=== PATIENT | male | born 1960 | race Caucasian/White ===

== ENCOUNTER → 2021-01-06 | Outpatient (CLI) | payer BC ==
[~2021-01-06] MED LIST: ATEN100 PO; CLON.1 PO; DOXA2 PO; FURO40 PO; Flomax0.4 MG PO; GABA300 PO; LISI20 PO; Micro-K10 MEQ; NICO21TP TOP; NIFE30ER PO; Percocet 5-3251 EACH PO; SPIR25 PO; TRAM50 PO; Vitamin D2000 UNIT PO; [UNRECOGNIZED DRUG - CODE] PO
== END | disposition home or self-care (01) ==
LOC: LAB EV 12:26 → LAB SHORT 12:26
DX: H60.91 Unspecified otitis externa, right ear (principal)
CPT/HCPCS: 87070; 87186; 87205

== ENCOUNTER 2021-08-28 05:54 | Inpatient (IN) | payer BC ==
[~2021-08-28] VITALS: Ht 165.1 cm; Wt 69.7 kg
[2021-08-28 06:41] LABS: Albumin, Blood 3.2 g/dL (3.4-5.0); Albumin/Globulin Ratio 0.7 (0.8-1.8); Bilirubin, Total 0.6 mg/dL (0.1-1.0); Bun/Creatinine Ratio 8.3 (12.0-20.0); Calcium, Blood 8.3 mg/dL (8.5-10.1); Creatinine, Blood 1.33 mg/dL (0.60-1.20); Globulin, Blood 4.5 g/dL (2.2-4.0); Potassium, Blood 3.5 mmol/L (3.5-5.5); Total Protein, Blood 7.7 g/dL (6.4-8.2); Troponin I 0.024 ng/mL (0.000-0.040)
[2021-08-28 07:01] LABS: Hematocrit 40.1 % (37.0-53.0); Hemoglobin 13.9 g/dL (13.5-17.5); Mean Corpuscular HGB 35.2 pg (26.0-34.0); Mean Corpuscular HGB Conc 34.7 g/dL (31.5-36.5); Mean Corpuscular Volume 102 fL (80-100); Mean Platelet Volume 8.4 fL (9.1-12.4); Platelet Count 236 K/mm3 (150-400); RDW Coefficient Variation 13.2 % (11.7-14.2); RDW Standard Deviation 50.3 fL (35.1-46.3); Red Blood Cell Count 3.95 M/mm3 (4.30-5.90); White Blood Cell Count 9.26 K/mm3 (4.00-11.30)
[2021-08-28 07:34] LABS: BAND PERCENT MAN 1 % (0-8); BASOPHILS ABSOLUTE MAN 0.09 K/mm3 (0.00-0.23); BASOPHILS PERCENT MAN 1 % (0-2); EOSINOPHILS PERCENT MAN 0 % (0-6); LYMPHOCYTES ABSOLUTE MAN 1.01 K/mm3 (0.84-5.20); LYMPHOCYTES PERCENT MAN 11 % (21-46); MONOCYTES ABSOLUTE MAN 0.46 K/mm3 (0.16-1.47); MONOCYTES PERCENT MAN 5 % (4-13); NEUTROPHILS ABSOLUTE MAN 7.68 K/mm3 (1.96-9.15); SEG NEUTROPHILS PERCENT MAN 82 % (41-73); TOTAL CELLS COUNTED 100
[2021-08-28 09:52] LABS: Source, Urine Clean Catch
[2021-08-28 10:05] LABS: Appearance, Urine Clear (Clear); Bilirubin, Urine Neg (Neg); Blood, Urine 3+ (Neg); Color, Urine Yellow (P-Yellow); Glucose Qualitative, Urine Neg (Neg); Ketones, Urine Neg (Neg); Leukocyte Esterase, Urine 3+ (Neg); Nitrite, Urine Pos (Neg); Protein, Urine 3+ (Neg); Urobilinogen, Urine NORM (Normal)
[2021-08-28 10:20] LABS: U Amphetamine Screen Not Detected; U Barbituate Screen Not Detected; U Benzodiazapine Screen Not Detected; U Buprenorphine Screen Not Detected; U Cannabinoids Screen DETECTED; U Cocaine Screen Not Detected; U Methadone Screen Not Detected; U Methamphetamine Screen Not Detected; U Opiates Screen Not Detected; U Oxycodone Screen Not Detected; U Phencyclidine Screen Not Detected; U Propoxyphene Screen Not Detected
[2021-08-28 10:26] LABS: Bacteria Many /hpf; Squamous Epithelial Cells Few /hpf (Few)
[2021-08-28 10:28] LABS: Amorphous Light (0-Heavy)
--- NOTE | 2021-08-28 18:18 | NUR ---
END OF SHIFT SUMMARY: PATIENT ARRIVED FROM ED LETHARGIC AND SLEEPY, AND REMAINED THIS WITH SHORT 5-10 MINUTES OF ALERT AND ORIENTED, TREMORS HAVE DECREASED THROUGHOUT THE DAY. DENIES ANY PAIN, NO CP TIGHTNESS. PATIENT TOLERATED VERY TINY SIPS OF WATER WHEN ALERT. PATIENT HAD A SEIZURE UPON EMS ARRIVAL, IS STILL NEEDING CT, DID NOT TOLERATE BECAUSE HE COULD NOT LAY FLAT WHEN IN THE ED. MAIN CONCERN WAS HOW HYPERTENSIVE PATIENT WAS EVEN AFTER DOSES OF IVP METOPROLOL, WHICH WERE GIVEN Q4 HOURS UNTIL THIS PM GAVE 20 MG OF HYDRALAZINE WHICH DECRESED BP'S TO THE 130'S AND 80'S. CHARGE NURSE CALLED PROVIDER FOR THESE ORDERS FROM HOSPITALIST. WILL CONTINUE TO MONITOR AT THIS TIME.
[2021-08-29 04:41] LABS: BASOPHILS ABSOLUTE AUTO 0.03 K/mm3 (0.00-0.23); BASOPHILS PERCENT AUTO 0 % (0-2); EOSINOPHILS ABSOLUTE AUTO 0.03 K/mm3 (0.00-0.68); EOSINOPHILS PERCENT AUTO 0 % (0-6); Hematocrit 34.8 % (37.0-53.0); Hemoglobin 11.9 g/dL (13.5-17.5); IMMATURE GRAN ABSOLUTE AUTO 0.03 K/mm3 (0.00-0.10); IMMATURE GRAN PERCENT AUTO 0 % (0-1); LYMPHOCYTES PERCENT AUTO 21 % (21-46); MONOCYTES ABSOLUTE AUTO 0.71 K/mm3 (0.16-1.47); MONOCYTES PERCENT AUTO 8 % (4-13); Mean Corpuscular HGB 34.9 pg (26.0-34.0); Mean Corpuscular HGB Conc 34.2 g/dL (31.5-36.5); Mean Corpuscular Volume 102 fL (80-100); Mean Platelet Volume 8.7 fL (9.1-12.4); NEUTROPHILS ABSOLUTE AUTO 6.18 K/mm3 (1.96-9.15); NEUTROPHILS PERCENT AUTO 71 % (41-73); Platelet Count 153 K/mm3 (150-400); RDW Coefficient Variation 13.2 % (11.7-14.2); RDW Standard Deviation 49.8 fL (35.1-46.3); Red Blood Cell Count 3.41 M/mm3 (4.30-5.90); White Blood Cell Count 8.78 K/mm3 (4.00-11.30)
[2021-08-29 05:15] LABS: Albumin, Blood 2.4 g/dL (3.4-5.0); Albumin/Globulin Ratio 0.6 (0.8-1.8); Bilirubin, Total 0.7 mg/dL (0.1-1.0); Bun/Creatinine Ratio 12.9 (12.0-20.0); Calcium, Blood 7.7 mg/dL (8.5-10.1); Creatinine, Blood 1.4 mg/dL (0.60-1.20); Globulin, Blood 3.9 g/dL (2.2-4.0); Magnesium, Blood 1.6 mg/dL (1.6-2.4); Potassium, Blood 3.2 mmol/L (3.5-5.5); Total Protein, Blood 6.3 g/dL (6.4-8.2)
--- NOTE | 2021-08-29 05:38 | NUR ---
SHIFT SUMMARY PATIENT IS FOUND TO BE A&OX3, FOLLOWS COMMANDS, WITH TREMORS AND ACTIVE ALCOHOL WITHDRAWAL. FORGETFUL OF LAST DAYS EVENTS BUT EASILY REORIENTED. CIWA SCORES FROM 7-12 ALL SHIFT WITH LIBRIUM GIVEN X1. UP WITH SBA IN ROOM. LITTLE DIZZY AND SHAKEY STILL AND IS CALLING RN APPROPRIATLY BEFORE GETTING UP. WILL HOLD OFF ON HEAD CT UNTIL PATIENT FEELING UP TO IT IN AM. SEIZURE PRECAUTIONS IN PLACE. VSS. ON RA. ST IN THE 90'S-LOW 100'S ON THE MONITOR. COMPLAINS OF STIFF NECK BUT OTHERISE RESTING COMFORTABLY IN BED MAJORITY OF SHIFT. TOLERATING REGULAR DIET WITHOUT ISSUE. VOIDING WELL PER URINAL OR WITH ASSISTANCE TO BATHROOM. NO ACUTE CONCERNS AT THIS TIME. WILL CONTINUE PLAN OF CARE UNTIL REPORT GIVEN TO DAYSHIFT RN.
[2021-08-29 10:08] LABS: Percent Saturation 26.3 % (20.0-50.0)
--- NOTE | 2021-08-29 18:39 | NUR ---
END OF SHIFT SUMMARY: PATIENT WAS AFIB THIS AM, AGITATION AND IVP METOPROLOL ALONG WITH MORNING METOPROLOL AND OTHER MORNING MEDS, FELL BACK AND SUSTAINED SINUS RHYTHM, HIGH 90'S. BP HAS BEEN STABLE, DENIES CHEST PAIN OR TIGHTNESS, HAS INCREASED STRENGTH AND MOVEMENT, ETOH CONVERSATION WITH HOSPITALIST, PATIENT PLANS TO CONTINUE TO DRINK AFTER DISCHARGE, CIWA HAVE BEEN STABLE LIBRIUM AND ATIVAN THIS AM, NONE THROUGHOUT SHIFT AND INCREASED MENTATION HAS BEEN MAINTAINED. USES CALL LIGHT APPROPRIATE, SBA THROUGH THE DAY. MULTIPLE VOIDS AND STOOLS UNMEASURED. ROCEPHINE SHOULD BE D/C'D TOMORROW IF CX NEG. RA SATURATING >94. WILL CONTINUE TO MONITOR.
[2021-08-30 05:03] LABS: BASOPHILS ABSOLUTE AUTO 0.03 K/mm3 (0.00-0.23); BASOPHILS PERCENT AUTO 0 % (0-2); EOSINOPHILS ABSOLUTE AUTO 0.09 K/mm3 (0.00-0.68); EOSINOPHILS PERCENT AUTO 1 % (0-6); Hematocrit 34.3 % (37.0-53.0); IMMATURE GRAN ABSOLUTE AUTO 0.03 K/mm3 (0.00-0.10); IMMATURE GRAN PERCENT AUTO 0 % (0-1); LYMPHOCYTES PERCENT AUTO 25 % (21-46); MONOCYTES ABSOLUTE AUTO 0.49 K/mm3 (0.16-1.47); MONOCYTES PERCENT AUTO 6 % (4-13); Mean Corpuscular HGB 35.6 pg (26.0-34.0); Mean Corpuscular Volume 102 fL (80-100); Mean Platelet Volume 8.9 fL (9.1-12.4); NEUTROPHILS ABSOLUTE AUTO 5.17 K/mm3 (1.96-9.15); NEUTROPHILS PERCENT AUTO 67 % (41-73); Platelet Count 121 K/mm3 (150-400); RDW Coefficient Variation 12.7 % (11.7-14.2); RDW Standard Deviation 47.5 fL (35.1-46.3); Red Blood Cell Count 3.37 M/mm3 (4.30-5.90); White Blood Cell Count 7.71 K/mm3 (4.00-11.30)
[2021-08-30 05:22] LABS: Albumin, Blood 2.4 g/dL (3.4-5.0); Anion Gap 6 mmol/L (6-16); Blood Urea Nitrogen 22 mg/dL (8-24); Bun/Creatinine Ratio 14.9 (12.0-20.0); CO2, Blood 26 mmol/L (21-32); Calcium, Blood 8.1 mg/dL (8.5-10.1); Chloride, Blood 108 mmol/L (98-108); Creatinine, Blood 1.48 mg/dL (0.60-1.20); Glomerular Filtration Rate 48 (60-); Glucose, Blood 86 mg/dL (70-99); Magnesium, Blood 1.8 mg/dL (1.6-2.4); Potassium, Blood 3.2 mmol/L (3.5-5.5); Sodium, Blood 140 mmol/L (136-145)
--- NOTE | 2021-08-30 05:58 | NUR ---
SHIFT SUMMARY PATIENT HAS BEEN A&OX4, PLESANT WITH CARE, WITH SOME FORGETFULLNESS. CIWA Q4H AND TREATED WITH LIBRIUM X1 ACCORDINGLY. IMPULSIVE AT TIMES BUT STEADY SO ALLOWING PATIENT TO BE UP IND IN ROOM TO NOT AGIATE HIM MORE THIS IS SENSITIVE ISSUE TO HIM. ONLY MILD TREMORS AND ANXIETY AT THIS POINT. SEIZURE PRECAUTIONS IN PLACE. VSS. SR/ST ON THE MONITOR ALL SHIFT. ON RA. TOLERATING REGULAR DIET WITHOUT ISSUE. VOIDING WELL PER URINAL AND IN BATHROOM. FEW BM'S OVERNIGHT BUT PATIENT STATES THIS IS NORMAL FOR HIM. WILL CONTINUE PLAN OF CARE UNTIL REPORT GIVEN TO DAYSHIFT RN.
[2021-08-30] MEDS ORDERED: METO25 PO (12:17)
[2021-08-30] MEDS ORDERED: ASPI81CH PO (12:27)
[2021-08-30] MEDS ORDERED: NICODERM CQ1 EA11 TOP (12:28)
[2021-08-30] MEDS ORDERED: OMEP20ER PO (12:28)
[2021-08-30] MEDS ORDERED: AMOCLA875 PO (12:29)
[2021-08-30] MEDS ORDERED: LACT PO (12:29)
--- NOTE | 2021-08-30 14:58 | NUR ---
UPDATE/DISHCARGE PT PROVIDED WITH DISCHARGE ORDERS AFTER IV FLUIDS FINISHED PER PHYSICIAN ORDER. PT'S NEW MEDICATIONS FAXED TO PT'S PREFERRED PHARMACY. PT PROVIDED WITH DISCHARGE INSTRUCTIONS PER PHYSICIAN. IV REMOVED. TELE REMOVED. PT TO BE BROUGHT TO [employer] VEHICLE BY [employer]ATION SALES TECHNICIAN BY WHEELCHAIR WITH ALL BELONINGS. PT HAS D/C PACKET WITH HIM.
== END 2021-08-30 15:12 | disposition home or self-care (01) | DRG 897 ==
LOC: ER 05:54 → PCU 05:55 → ERHOLD 05:55 → PCU 12:32
PROVIDERS: Emergency Medicine; Family Medicine; Nurse Practitioner Acute Care; ADMIT Family Medicine
DX: F10.139 Alcohol abuse with withdrawal, unspecified (principal); E87.2 Acidosis; R56.9 Unspecified convulsions; I16.0 Hypertensive urgency; I12.9 Hypertensive chronic kidney disease with stage 1 through stage 4 chronic kidney disease, or unspecified chronic kidney disease; N18.30 Chronic kidney disease, stage 3 unspecified; F17.210 Nicotine dependence, cigarettes, uncomplicated; I48.91 Unspecified atrial fibrillation; G47.33 Obstructive sleep apnea (adult) (pediatric); B19.20 Unspecified viral hepatitis C without hepatic coma; N40.0 Benign prostatic hyperplasia without lower urinary tract symptoms; G43.909 Migraine, unspecified, not intractable, without status migrainosus; K70.9 Alcoholic liver disease, unspecified; E87.6 Hypokalemia; H70.91 Unspecified mastoiditis, right ear; E83.42 Hypomagnesemia; D69.59 Other secondary thrombocytopenia; F10.129 Alcohol abuse with intoxication, unspecified; D63.8 Anemia in other chronic diseases classified elsewhere; E88.09 Other disorders of plasma-protein metabolism, not elsewhere classified; I77.819 Aortic ectasia, unspecified site; M19.90 Unspecified osteoarthritis, unspecified site; F43.10 Post-traumatic stress disorder, unspecified; Y90.1 Blood alcohol level of 20-39 mg/100 ml; Z79.899 Other long term (current) drug therapy; Z79.891 Long term (current) use of opiate analgesic; Z91.14 Patient's other noncompliance with medication regimen; Z91.19 Patient's noncompliance with other medical treatment and regimen
CPT/HCPCS: 36415; 70450; 71045; 80053; 80069; 81001; 82607; 82728; 82746; 83540; 83550; 83605; 83735; 83880; 84443; 84484; 85025; 87086; 93005; 93010; 93306; 94762; 96361; 96365; 96366; 96367; 96368; 96375; 96376; 99285-25; A9270; G0378; G0480; J0360; J0696; J1650; J2060; J2405; J2765; J3411; J3475; J3480; J7030; J7042

== ENCOUNTER 2022-04-03 06:46 | Inpatient (IN) | payer BC ==
[~2022-04-03] VITALS: Ht 162.6 cm; Wt 69.3 kg
[~2022-04-03 06:46] MED LIST changes: +AMOCLA875 PO; +ASPI81CH PO; +LACT PO; +METO25 PO; +NICODERM CQ1 EA11 TOP; +OMEP20ER PO
[2022-04-03] MEDS ORDERED: KERENDIA10 MG PO (07:48)
[2022-04-03] MEDS ORDERED: KLOR-CON 1010 ME8 PO (07:49)
[2022-04-03] MEDS ORDERED: ATEN50 PO (07:49)
[2022-04-03] MEDS ORDERED: FURO40 PO (07:50)
[2022-04-03 07:57] LABS: BASOPHILS ABSOLUTE AUTO 0.03 K/mm3 (0.00-0.23); BASOPHILS PERCENT AUTO 0 % (0-2); EOSINOPHILS PERCENT AUTO 0 % (0-6); Hematocrit 29.1 % (37.0-53.0); Hemoglobin 10.3 g/dL (13.5-17.5); IMMATURE GRAN ABSOLUTE AUTO 0.02 K/mm3 (0.00-0.10); IMMATURE GRAN PERCENT AUTO 0 % (0-1); LYMPHOCYTES ABSOLUTE AUTO 1.04 K/mm3 (0.84-5.20); LYMPHOCYTES PERCENT AUTO 13 % (21-46); MONOCYTES ABSOLUTE AUTO 0.67 K/mm3 (0.16-1.47); MONOCYTES PERCENT AUTO 8 % (4-13); Mean Corpuscular HGB 36.3 pg (26.0-34.0); Mean Corpuscular HGB Conc 35.4 g/dL (31.5-36.5); Mean Corpuscular Volume 103 fL (80-100); Mean Platelet Volume 8.7 fL (9.1-12.4); NEUTROPHILS PERCENT AUTO 78 % (41-73); Platelet Count 224 K/mm3 (150-400); RDW Coefficient Variation 13.7 % (11.7-14.2); RDW Standard Deviation 51.8 fL (35.1-46.3); Red Blood Cell Count 2.84 M/mm3 (4.30-5.90); White Blood Cell Count 7.96 K/mm3 (4.00-11.30)
[2022-04-03 08:12] LABS: Albumin, Blood 3.2 g/dL (3.4-5.0); Albumin/Globulin Ratio 0.9 (0.8-1.8); Bilirubin, Total 0.6 mg/dL (0.1-1.0); Bun/Creatinine Ratio 31.8 (12.0-20.0); Calcium, Blood 8.8 mg/dL (8.5-10.1); Creatinine, Blood 1.57 mg/dL (0.60-1.20); Globulin, Blood 3.5 g/dL (2.2-4.0); Potassium, Blood 4.2 mmol/L (3.5-5.5); Total Protein, Blood 6.7 g/dL (6.4-8.2)
[2022-04-03 09:08] LABS: Influenza A, PCR NEGATIVE (NEGATIVE); Influenza B, PCR NEGATIVE (NEGATIVE); Resp Syncytial Virus, PCR NEGATIVE (NEGATIVE); SARS-Cov-2 (COVID-19) PCR, MMC NEGATIVE (NEGATIVE)
[2022-04-03 15:55] LABS: Hemoglobin 8.9 g/dL (13.5-17.5)
--- NOTE | 2022-04-03 18:00 | NUR ---
Pt arrived from the ED via stretcher. He is alert, oriented, and cooperative. Calm. Denies any anxiety, pain, headache, hallucinations, nor nausea. He has some mild tremors which he states that he always has, even when he is drinking alcohol. STates that his last drink was March the . States that he has been trying to cut back on his drinking, and he recognizes that he is an alcoholic, but that it is "very hard". STates he did have treatment 25 years ago for chemical dependency, but none since then. At this time his CIWA score is 1. Call to Dr. Magdaleno to request oral medications PRN alcohol withdrawls. Sandostatin, IV NS and IV protonix are all infusing as ordered. He states that just before coming to the unit he had a bowel movement which looked totally normal in color. Noted blood pressure is elevated. Normal sinus rhythm noted on telemetry.
--- NOTE | 2022-04-03 18:32 | NUR ---
Pt up to bedside commode, very small smear of stool which was brown and red. Given librium po for withdrawl symptoms.
--- NOTE | 2022-04-03 20:43 | NUR ---
ASSUMED CARE OF PATIENT AT APPROXIMATELY 1915 FROM URBAN Mckeon RN. PATIENT ALERT AND ORIENTED X4; SBA OUT OF BED DUE TO LINES AND CORDS. PATIENT WAS SLEEPING DURING BEDSIDE REPORTS AND REPORTS HE IS TRYING TO SLEEP TO FORGET ABOUT NOT BEING ABLE TO EAT. PATIENT NPO. PATIENT DENIES NUMBNESS, TINGLING, DIZZINESS, AND NAUSEA. OCTREOTIDE, NS, AND PROTONIX INFUSING PER ORDER. SR ON TELE; OXYGEN SATURATION ABOVE 90% ON ROOM AIR. PATIENT AMBULATED TO BATHROOM AND HAS A VERY SMALL SMEAR BROWN TARRY BM; NO RED BLOOD NOTED. BP ELEVEATED BUT SCHEDULED PM MEDICATION GIVEN PER ORDER; WILL REASSESS.
[2022-04-03 21:15] LABS: Hematocrit 22.3 % (37.0-53.0); Hemoglobin 7.9 g/dL (13.5-17.5)
[2022-04-04 03:23] LABS: Hematocrit 22.2 % (37.0-53.0); Hemoglobin 7.5 g/dL (13.5-17.5)
[2022-04-04 03:39] LABS: International Normalized Ratio 1.09; Prothrombin Time Results 11.4 Sec (9.7-11.5)
[2022-04-04 03:43] LABS: Albumin, Blood 2.7 g/dL (3.4-5.0); Albumin/Globulin Ratio 0.9 (0.8-1.8); Bilirubin, Total 0.6 mg/dL (0.1-1.0); Bun/Creatinine Ratio 23.4 (12.0-20.0); Creatinine, Blood 1.75 mg/dL (0.60-1.20); Globulin, Blood 2.9 g/dL (2.2-4.0); Magnesium, Blood 1.7 mg/dL (1.6-2.4); Potassium, Blood 3.9 mmol/L (3.5-5.5); Total Protein, Blood 5.6 g/dL (6.4-8.2)
--- NOTE | 2022-04-04 06:11 | NUR ---
NO ACUTE CHANGES TO REPORT; PATIENT SLEPT ABOUT EIGHT HOURS LAST NIGHT; CIWA INCREASING AND MEDICATED WITH EMAR. RECLINER OFFERED TO PATIENT AND PATIENT REPORTS HE LIVES IN A RECLINER AT HOME; HELPS WITH BACK PAIN; WARM BLANKET GIVEN AND PATIENT REPORTS HE FEELS MORE COMFORTABLE.
--- NOTE | 2022-04-04 07:46 | NUR ---
Per report, no bleeding overnight. Pt is sitting up in recliner chair, ambulatory to the bathroom to void. IV Octreotide, NS and protonix all infusing. CIWA score 1. Pt is alert, oriented and conversant. States that he feels okay except that his mouth is really dry and he is starving. Ice chips on his table, and also has some hard candies and chewing gum. Blood pressure noted high; given his catapres and waiting for pharmacy to send the missing medications (folic acid, atenolol, thiamine) for administration. Librium 25 mg was given about 2 hours ago per noc shift report.
--- NOTE | 2022-04-04 08:41 | NUR ---
Dr. Charles here, rounding on pt. Folic acid and thiamine changed to oral route. Clear liquid diet added. Pt assisted with IV pole to the bathroom; passed some urine, but no bowel movement.
[2022-04-04 13:25] LABS: Hematocrit 28.9 % (37.0-53.0); Hemoglobin 9.4 g/dL (13.5-17.5)
--- NOTE | 2022-04-04 15:23 | NUR ---
Assisted to take shower. IV right forearm is infiltrated; it was dc'd. Pt tolerating ambulation to the bathroom well. Minimal withdrawl symptoms; responding well to lowest librium dose, about 2-3 times/24 hours.
[2022-04-04 15:32] LABS: Hematocrit 27.1 % (37.0-53.0); Hemoglobin 9.1 g/dL (13.5-17.5)
--- NOTE | 2022-04-04 16:52 | NUR ---
Passed one very small brown soft stool, and unmeasured void in the toilet. STates that he feels great after taking a shower.
--- NOTE | 2022-04-04 17:29 | NUR ---
C/o throbbing left sided headache. NO other withdrawl symptoms noted at this time, except for some very mild anxiety. Given librium 25 mg at this time.
--- NOTE | 2022-04-04 18:16 | NUR ---
Pt states headache resolved. Standby assist to the bathroom he says to void. Octreotide and Protonix gtts both infusing. He tolerated clear liquid diet very well today.
[2022-04-04 19:08] LABS: Hematocrit 25.4 % (37.0-53.0); Hemoglobin 8.7 g/dL (13.5-17.5)
--- NOTE | 2022-04-04 21:45 | NUR ---
ASSUMED CARE OF PATIENT AT APPROXIMATELY 1910 FROM URBAN Mckeon RN. PATIENT ALERT AND ORIENTED X4; SBA OUT OF BED DUE TO LINES AND CORDS. PATIENT IRRITABLE AT TIMES ABOUT LINES AND CORDS BEING TANGLED. PATIENT DENIES NUMBNESS, TINGLING, DIZZINESS, AND NAUSEA. OCTREOTIDE, NS, AND PROTONIX INFUSING PER ORDER. SR ON TELE; OXYGEN SATURATION ABOVE 90% ON ROOM AIR. CIWA 8; MEDICATED WITH LIBRUIM.
--- NOTE | 2022-04-04 22:50 | NUR ---
CALLED DR. DUDLEY TO REQUEST NICOTINE PATCH PER PATIENT REQUEST; ORDERS FOR 21MG DAILY
[2022-04-04 23:13] LABS: Hematocrit 24.5 % (37.0-53.0); Hemoglobin 8.4 g/dL (13.5-17.5)
[2022-04-05 03:12] LABS: Hematocrit 24.7 % (37.0-53.0); Hemoglobin 8.5 g/dL (13.5-17.5)
--- NOTE | 2022-04-05 05:42 | NUR ---
PATIENT SLEPT ABOUT EIGHT HOURS LAST NIGHT OFF AND ON; REPORTS HE IS ANXIOUS ABOUT GETTING A SCOPE DUE TO COMPLICATIONS WITH LAST ONE. MEDICATED PER EMAR FOR CIWA. NO OTHER ACUTE CHANGES
[2022-04-05 07:21] LABS: Hematocrit 30.2 % (37.0-53.0); Hemoglobin 10.2 g/dL (13.5-17.5)
--- NOTE | 2022-04-05 09:19 | NUR ---
CARE ASSUMPTION THIS RN ASSUMED CARE AT 0700 FROM NOE BEYER. VSS. TELE NSR 70-80S. PATIENT NEURO IS INTACT. PERRLA. ALERT AND ORIENTED X4. PATIENT REPROTS NO HEADACHE. PATIENT REPORTS TREMORS AT BASELINE. PATIENT IS INDEPEDENT IN THE ROOM, BUT HAS BEEN EDUCATED ON CALLING SO WE CAN UNHOOK HIS IV WHEN GETTING UP TO GO TO THE BATHROOM. PATIENT REPORTS NO SHORTNESS OF BREATH, ON ROOM AIR. PATIENT LUNG SOUNDS COARSE THROUGHOUT. PATIENT REPORTS NO CHEST PAIN/PRESSURE. HYPERTENSIVE THIS AM, BUT RECEIVED MORNING BLOOD PRESSURE MEDICATIONS. PATIENT HAS NO EDEMA NOTED. CAP REFILL <3SECONDS. PATIENT ABD IS SOFT NONTENDER AND ACTIVE. PATIENT SKIN IS CLEAN DRY AND INTACT. NO ISSUES VOIDING. PATIENT USES THE CALL LIGHT APPROPRIATELY. GI CONSULT CALLED IN THIS AM. PATIENT CIWA SCORE 0 THIS AM. PATIEINT HAS PROTONIX AT 10MLS/HR. PATIENT HAS OCTREOTIDE 25MLS/HR. PATIENT HAS NS AT 75MLS/HR. PATIENT TAKES MEDICATIONS WITH WATER AND HAS NO ISSUES. PATIENT IS TOLERATING THE CLEAR LIQUID DIET. PATIENT IS UP TO DATE WITH PLAN OF CARE, AND SO IS HIS . AWAITING FOR GI TO COME BY AND SEE HIM. THIS RN USED THERAPUETIC COMMUNICATION AND ACTIVE LISTENING IN ALL INTERACTIONS. WILL CONTINUE TO DO HOURLY ROUNDING AND PROVIDE CARE.
[2022-04-05 10:47] LABS: Hematocrit 26.6 % (37.0-53.0); Hemoglobin 8.9 g/dL (13.5-17.5)
--- NOTE | 2022-04-05 13:10 | NUR ---
UPDATE PEPITO ROY AND MD QUINTANILLA IN TO PATIENT ROOM TO DISCUSS AN UPPER ENDOSCOPY. PATIENT EDUCATED ON WHAT THE PROCEDURE WILL ENTAIL AND WHAT TO EXPECT. PATIENT LEFT TO SURGERY.
--- NOTE | 2022-04-05 14:06 | NUR ---
04/05/22 1406 Ray Voss History, Chart, Medications and Allergies reviewed before start of procedure.MONITOR INTACT WITH CONTINUOUS PULSE OXIMETRY AND INTERMITTENT BP.3-LEAD EKG REVIEWED WITH PHYSICIAN PRIOR TO START OF PROCEDURE.O2 VIA POM INTACT THROUGHOUT SEDATION/PROCEDURE. See Anesthesia record.
--- NOTE | 2022-04-05 15:54 | NUR ---
UPDATE PATIENT BACK FROM EGD AT APPROX 1430. SEE OPPERATIVE NOTE FOR DETAILS ON THE PROCDURE. PATIENT IS HYPERTENSIVE SINCE RETURNING AND RECEIVING IV PRN BLOOD PRESSURE MEDICATION PER EMAR, SEE EMAR. PATIENT IS SLEEPY, BUT IS ALERT AND ORIENTED X4. PATIENT UPDATED BY THE MD. PATIENT OCTREOTIDE STOPPED, BUT TO CONTINUE THE PPI FOR 48 HOURS, PER MD NOTE, SEE NOTE. PATIENT IS A CLEAR LIQUID DIET AND TOMORROW CAN ADVANCE DIET TOLERATED. PATIENT CALL LIGHT WITHIN REACH. WILL CONTINUE TO DO HOURLY ROUNDING AND PROVIDE CARE. PLAN OF CARE UP TO DATE.
--- NOTE | 2022-04-05 17:39 | NUR ---
SHIFT SUMMARY NO ACUTE CHANGES DURING THIS SHIFT. SEE PERVIOUS NOTE FOR UPDATES. NEURO REMAINS INTACT. VSS. BP WAS HYPERTENSIVE, BUT PATIENT WAS LAYING ON THAT ARM AND CUFF WHEN RETAKING BP WAS STABLE. PATIENT EATING CLEAR LIQUID DIET FOR DINNER. CALL LIGHT WITHIN REACH AND BED IN LOWEST POSITION. WILL CONTINUE TO MONITOR AND PROVIDE CARE UNTIL HAND OFF WITH NEXT SHIFT.
--- NOTE | 2022-04-06 05:33 | NUR ---
SHIFT SUMMARY ASSUMED CARE OF PT AROUND 1900. PT IS A/OX4. HEART SOUNDS REGULAR. PT HAS HAD PJC SINCE RETURING FROM PROCEDURE. LUNG SOUNDS CLEAR WITH OCCASIONAL COUGH. PT WAS A SBA TO BATHROOM. PT UPSET ABOUT NOT BEING ABLE TO HAVE FOOD YET. PT ALSO UPSET ABOUT STAYING IN HOSPITAL UNTIL FRIDAY. PT SLEPT T/O THE NIGHT.
--- NOTE | 2022-04-06 14:02 | NUR ---
TRANSFER SUMMARY: PATIENT WAS WHEELED TO [facility] FLOOR ROOM 301 BY RN IN A WHEELCHAIR. PATIENT HAD ALL PERSONAL BELONGINGS AND CHART, ADDITIONALLY PATIENT WAS TRANSPORT WITH BOTH PROTONIX AND NS FLUIDS RUNNING, WITH FRESH BAG OF EACH. PATIENT WAS IN NO SIGNS OF ACUTE DISTRESS, BUT ERICA OF BLOOD PRESSURE BEFORE TRANSPORT, SLIGHTLY ELEVATED, GAVE PRN HYDRALAZINE 15 MINUTES PRIOR TO DISCHARGE. PATIENT DENIED BEING DIZZY, OLIVER, NO CHEST PAIN/PRESSURE, REPORT GIVEN TO RECIEVING RN AND VERBALLY INFORMED OF GIVING THE PRN HYDRALAZINE. PATIENT ON RA, NO CONCERNS OR QUESTIONS FOR THIS RN AT THIS TIME. NO TELE.
--- NOTE | 2022-04-06 17:29 | NUR ---
SHIFT SUMMARY PT TRANSFERED FROM PCU THIS AFTERNOON. PT ALERT AND ORIENTED, FOLLOWS COMMMANDS, INDEPENDENT. FLUIDS INFUSING AT 75ML/HR WELL PROTONIX AT 10ML/HR. NO C/O PAIN. BLOOD PRESSURE SLIGHTLY ELEVATED, PRN MEDS ADMINISTERED. PT UP TO SHOWER AND AMBULATING DOWN HALLS. WILL CONTINUE TO MONITOR.
--- NOTE | 2022-04-07 04:00 | NUR ---
SHIFT SUMMARY PATIENT HAD NO ACUTE CHANGES. AXOX 4 AND INDEPENDENT IN ROOM. PIVS REMAIN INTACT. IV PROTONIX DRIP INFUSING AT 10 mL/HR AND NS INFUSING AT 75mL/HR. DENIES PAIN, SOB, AND N/V. VSS/AFEBRILE. REPORTS HE HAS BLURRED VISION WITH HX OF MACULAR DEGENERATION. UNCOLLECTED BM AT THIS TIME. COOPERATIVE WITH CARE. CALL LIGHT IN REACH. BED IN LOWEST POSITION. WILL CONTINUE TO MONITOR UNTIL DAY SHIFT NURSE ASSUMES CARE.
[2022-04-07 05:01] LABS: BASOPHILS ABSOLUTE AUTO 0.01 K/mm3 (0.00-0.23); BASOPHILS PERCENT AUTO 0 % (0-2); EOSINOPHILS ABSOLUTE AUTO 0.15 K/mm3 (0.00-0.68); EOSINOPHILS PERCENT AUTO 2 % (0-6); Hemoglobin 8.8 g/dL (13.5-17.5); IMMATURE GRAN ABSOLUTE AUTO 0.05 K/mm3 (0.00-0.10); IMMATURE GRAN PERCENT AUTO 1 % (0-1); LYMPHOCYTES ABSOLUTE AUTO 1.31 K/mm3 (0.84-5.20); LYMPHOCYTES PERCENT AUTO 15 % (21-46); MONOCYTES ABSOLUTE AUTO 0.61 K/mm3 (0.16-1.47); MONOCYTES PERCENT AUTO 7 % (4-13); Mean Corpuscular HGB 34.8 pg (26.0-34.0); Mean Corpuscular HGB Conc 32.6 g/dL (31.5-36.5); Mean Corpuscular Volume 107 fL (80-100); Mean Platelet Volume 9.1 fL (9.1-12.4); NEUTROPHILS PERCENT AUTO 76 % (41-73); Platelet Count 139 K/mm3 (150-400); RDW Coefficient Variation 15.2 % (11.7-14.2); RDW Standard Deviation 60.1 fL (35.1-46.3); Red Blood Cell Count 2.53 M/mm3 (4.30-5.90); White Blood Cell Count 9.03 K/mm3 (4.00-11.30)
[2022-04-07 05:08] LABS: HIV AB/P24 AG SCREEN Non Reactive (Non Reactive)
[2022-04-07 05:23] LABS: Albumin, Blood 2.8 g/dL (3.4-5.0); Albumin/Globulin Ratio 0.9 (0.8-1.8); Bilirubin, Total 0.3 mg/dL (0.1-1.0); Bun/Creatinine Ratio 10.7 (12.0-20.0); Calcium, Blood 7.5 mg/dL (8.5-10.1); Creatinine, Blood 1.59 mg/dL (0.60-1.20); Globulin, Blood 3.1 g/dL (2.2-4.0); Percent Saturation 4.3 % (20.0-50.0); Potassium, Blood 4.3 mmol/L (3.5-5.5); Total Protein, Blood 5.9 g/dL (6.4-8.2)
[2022-04-07] MEDS ORDERED: FLUC200 PO (11:01)
[2022-04-07] MEDS ORDERED: PANT40 PO (11:02)
--- NOTE | 2022-04-07 11:30 | NUR ---
DISCHARGE SUMMARY PT RECEIVED DISCHARGE, FOLLOWUP, AND MEDICATION INSTRUCTIONS. PATIENT VOICED COMPLETE UNDERSTANDING AND HAS NO QUESTIONS AT THIS TIME. IV'S REMOVED WITH CATHETER TIP INTACT. AWAITING PATIENTS RIDE TO ARRIVE. WILL CONTINUE TO MONITOR.
== END 2022-04-07 11:54 | disposition home or self-care (01) | DRG 378 ==
LOC: ER 06:46 → MEDS 15:29 → PCU 15:29 → MEDS 04-06 13:27
PROVIDERS: Emergency Medicine; Nurse Practitioner Acute Care; Student in an Organized Health Care Education/Training Program; ADMIT Internal Medicine
PROC: 30233N1 Transfusion of Nonautologous Red Blood Cells into Peripheral Vein, Percutaneous Approach (ICD-10-PCS; principal; 2022-04-04)
PROC: 3E0G8GC Introduction of Other Therapeutic Substance into Upper GI, Via Natural or Artificial Opening Endoscopic (ICD-10-PCS; 2022-04-05)
PROC: 0DB98ZX Excision of Duodenum, Via Natural or Artificial Opening Endoscopic, Diagnostic (ICD-10-PCS; 2022-04-05)
PROC: 0DB68ZX Excision of Stomach, Via Natural or Artificial Opening Endoscopic, Diagnostic (ICD-10-PCS; 2022-04-05)
PROC: 0DB58ZX Excision of Esophagus, Via Natural or Artificial Opening Endoscopic, Diagnostic (ICD-10-PCS; 2022-04-05)
PROC: 0W3P8ZZ Control Bleeding in Gastrointestinal Tract, Via Natural or Artificial Opening Endoscopic (ICD-10-PCS; 2022-04-05 13:30)
DX: K26.4 Chronic or unspecified duodenal ulcer with hemorrhage (principal); B37.81 Candidal esophagitis; D62 Acute posthemorrhagic anemia; F10.239 Alcohol dependence with withdrawal, unspecified; E87.1 Hypo-osmolality and hyponatremia; N17.9 Acute kidney failure, unspecified; K29.71 Gastritis, unspecified, with bleeding; Z20.822 Contact with and (suspected) exposure to COVID-19; B19.20 Unspecified viral hepatitis C without hepatic coma; I12.9 Hypertensive chronic kidney disease with stage 1 through stage 4 chronic kidney disease, or unspecified chronic kidney disease; G47.33 Obstructive sleep apnea (adult) (pediatric); N40.0 Benign prostatic hyperplasia without lower urinary tract symptoms; M19.90 Unspecified osteoarthritis, unspecified site; G43.909 Migraine, unspecified, not intractable, without status migrainosus; F43.10 Post-traumatic stress disorder, unspecified; F17.210 Nicotine dependence, cigarettes, uncomplicated; D53.9 Nutritional anemia, unspecified; N18.30 Chronic kidney disease, stage 3 unspecified; Z91.19 Patient's noncompliance with other medical treatment and regimen; Z99.89 Dependence on other enabling machines and devices; Z98.890 Other specified postprocedural states; Z79.82 Long term (current) use of aspirin; Z79.899 Other long term (current) drug therapy
CPT/HCPCS: 0241U; 36415; 36430; 80053; 82728; 82941; 83540; 83550; 83690; 83735; 85014; 85018; 85025; 85610; 86850; 86900; 86901; 86920; 87338; 87389; 93005; 93010; 96365; 96366; 96368; 96375; 99285-25; A9270; C9113; J0171; J0360; J0696; J2250; J2354; J2405; J2704; J3411; J7030; J7050; J7120; P9016

== ENCOUNTER 2025-08-08 06:09 | Day surgery (SDC) | payer BC ==
[~2025-08-08] VITALS: Ht 162.6 cm; Wt 72.1 kg
[~2025-08-08 06:09] MED LIST changes: +ATEN50 PO; +FLUC200 PO; +KERENDIA10 MG PO; +KLOR-CON 1010 ME8 PO; +PANT40 PO
[2025-08-08] MEDS ORDERED: BUMETANIDE0.5 M1 PO (06:47)
[2025-08-08] MEDS ORDERED: ELIQUIS PO (06:48)
[2025-08-08] MEDS ORDERED: METO25ER PO (06:48)
[2025-08-08] MEDS ORDERED: Amlodipine Bes2.5 MG PO (06:55)
[2025-08-08] MEDS ORDERED: Rocuronium Bromide 10 MG/ML 5ML Injection IV ONE ×2 (07:03→10:27)
[2025-08-08] MEDS ORDERED: FentaNYL Citrate 50 MCG/ML 2 ML Injection ONE ×2 (07:03→12:38)
[2025-08-08] MEDS ORDERED: Midazolam HCl 1MG / ML 2ML Vial ONE (07:03)
[2025-08-08] MEDS ORDERED: Lidocaine 2%-Epineph 1:200000 20 ML SDV ONE (07:07)
[2025-08-08] MEDS ORDERED: Triamcinolone Inj Susp 40 MG / ML 1ML Vial ONE (07:07)
[2025-08-08] MEDS ORDERED: NS 1,000 ML IV ONE ×2 (07:23→10:47)
[2025-08-08 07:33] LABS: Alanine Aminotransfer (ALT/SGP 26.0 U/L (12-78); Albumin, Blood 3.1 g/dL (3.4-5.0); Albumin/Globulin Ratio 0.7 (0.8-1.8); Anion Gap 11.0 mmol/L (3-11); Aspartate Aminotrans (AST/SGOT 19.0 U/L (12-37); Bilirubin, Total 0.5 mg/dL (0.1-1.0); Blood Urea Nitrogen 28.0 mg/dL (8-24); CO2, Blood 20.0 mmol/L (21-32); Calcium, Blood 7.4 mg/dL (8.5-10.1); Chloride, Blood 113.0 mmol/L (98-108); Creatinine, Blood 3.69 mg/dL (0.60-1.20); Globulin, Blood 4.2 g/dL (2.2-4.0); Glucose, Blood 90.0 mg/dL (70-99); Potassium, Blood 3.5 mmol/L (3.5-5.5); Sodium, Blood 140.0 mmol/L (136-145); Total Protein, Blood 7.3 g/dL (6.4-8.2)
[2025-08-08] MEDS ORDERED: Phenylephrine HCl 100 MCG/ML-NS 10MLSYR (1MG/10ML) ONE (07:37)
[2025-08-08] MEDS ORDERED: Albuterol HFA200 ACT/6.7 GM INH ONE (07:40)
[2025-08-08] MEDS ORDERED: Ondansetron HCl 2 MG / ML 2ML Vial ONE (09:07)
[2025-08-08] MEDS ORDERED: Sugammadex Sodium 200 MG/2ML SDV (100 MG/ML) ONE (11:52)
--- NOTE | 2025-08-08 12:26 | NUR ---
08/08/25 1226 NILESH BLEVINS PT BROUGHT OUT OF OR ON OXYGEN VIA NON-REBREATHER. PT PUSHING IT OFF., PLACED ON O2 VIA FACE TENT 10L WHICH WAS ADEQUATE THAN DROPPED TO UPPER 80'S. BUMPED O2 TO 15 L OXYGEN
--- NOTE | 2025-08-08 12:57 | NUR ---
08/08/25 1257 NILESH BLEVINS PT PLACED BACK ON OXYGEN 6L VIA NASAL CANNULA. CURRENTLY 93% ON 6L
[2025-08-08 13:27] VITALS: BP 136/82
== END 2025-08-08 14:14 | disposition home or self-care (01) ==
LOC: ORSCSDS 06:09
PROVIDERS: Otolaryngology
PROC: 0NU50JZ Supplement Right Temporal Bone with Synthetic Substitute, Open Approach (ICD-10-PCS; principal; 2025-08-08 07:30)
DX: H71.91 Unspecified cholesteatoma, right ear (principal); H90.A31 Mixed conductive and sensorineural hearing loss, unilateral, right ear with restricted hearing on the contralateral side; E11.22 Type 2 diabetes mellitus with diabetic chronic kidney disease; I12.9 Hypertensive chronic kidney disease with stage 1 through stage 4 chronic kidney disease, or unspecified chronic kidney disease; N18.9 Chronic kidney disease, unspecified; I48.91 Unspecified atrial fibrillation; Z79.01 Long term (current) use of anticoagulants; J44.9 Chronic obstructive pulmonary disease, unspecified; F17.210 Nicotine dependence, cigarettes, uncomplicated; G47.33 Obstructive sleep apnea (adult) (pediatric); G40.909 Epilepsy, unspecified, not intractable, without status epilepticus; Z79.899 Other long term (current) drug therapy
CPT/HCPCS: 80053; A9270; J0166; J2250; J2371; J2405; J2704; J3010; J3301

== ENCOUNTER → 2025-09-05 | Outpatient (CLI) | payer BC ==
[~2025-09-05] MED LIST changes: +Amlodipine Bes2.5 MG PO; +BUMETANIDE0.5 M1 PO; +ELIQUIS PO; +METO25ER PO
== END ==
LOC: LAB SHORT 14:53 → LAB 14:53
DX: N39.0 Urinary tract infection, site not specified (principal)
CPT/HCPCS: 87086